=== PATIENT | male | born 1980 | race African-American/Black ===

== ENCOUNTER → 2016-09-09 | Outpatient (CLI) | payer BC | LOC: RAD 17:23 | PROVIDERS: ATTEND Nurse Practitioner Acute Care | DX: R59.0 Localized enlarged lymph nodes (principal) | CPT/HCPCS: 70360 ==

== ENCOUNTER 2019-09-23 17:03 | Emergency (ER) | payer BC ==
[2019-09-23] MEDS ORDERED: ASPIRIN 81 MG TABLET, CHEWABLE PO ONE (18:31)
--- NOTE | 2019-09-23 18:31 | ER Document Report ---
ED Medical Screen (RME) - General Chief Complaint: Chest Pain Stated Complaint: CHEST PAIN Time Seen by Provider: 09/23/19 18:17 Mode of Arrival: Ambulatory Information source: Patient TRAVEL OUTSIDE OF THE [place] IN LAST 30 DAYS: No - HPI Notes: 09/23/19 18:31 39-year-old male with a history of asthma presents to the emergency room by private car today for complaints of left-sided chest pain that started around 1130 this morning, has been intermittent. Patient states he went to the local EMS, they checked his blood pressure and said it was kind of high, advised to follow-up with his doctor or go to the emergency room. Patient states that the chest pain goes away for a bit and then comes back. Typically he states the chest pains been to his left axillary area, in the waiting room he said that the chest pain comes and goes. Smoker. No history of hypertension. Denies any TN or CVA or cardiac disease on his mother father side. Does not take any oral medications. No fever or chills. No shortness of breath I have greeted and performed a rapid initial assessment of this patient. A comprehensive ED assessment and evaluation of the patient, analysis of test results and completion of the medical decision making process will be conducted by additional ED providers. PHYSICAL EXAMINATION: GENERAL: Well-appearing, well-nourished and in no acute distress. CV: s1, s2 regular LUNGS: No respiratory distress NEUROLOGICAL: Normal speech, normal gait. SKIN: Warm, Dry, normal turgor, no rashes or lesions noted. - Related Data Allergies/Adverse Reactions: iodine [Iodine] Allergy (Unknown, Verified 09/23/19 18:28) Past Medical History - Social History Family history: None Pulmonary Medical History: Reports: Hx Asthma Psychiatric Medical History: Denies: Hx Depression - Immunizations Immunizations up to date: Yes Hx Diphtheria, Pertussis, Tetanus Vaccination: Yes - tetanus here Physical Exam - Vital signs Vitals: Temp Pulse Resp BP Pulse Ox 98.4 F 65 18 147/82 H 99 09/23/19 17:23 09/23/19 17:23 09/23/19 17:23 09/23/19 17:23 09/23/19 17:23 Course - Vital Signs Vital signs: Temp Pulse Resp BP Pulse Ox 98.4 F 65 18 147/82 H 99 09/23/19 17:23 09/23/19 17:23 09/23/19 17:23 09/23/19 17:23 09/23/19 17:23
--- NOTE | 2019-09-23 19:02 | EKG REPORT ---
SEVERITY:- ABNORMAL ECG - SINUS RHYTHM LEFT ATRIAL ABNORMALITY BORDERLINE T ABNORMALITIES, DIFFUSE LEADS : Confirmed by: Eric Gupta MD 23-Sep-2019 19:01:12
[2019-09-23 19:21] LABS: ABSOLUTE EOSINOPHILS # (AUTO) 0.2 10^3/uL (0.0-0.6); ABSOLUTE LYMPHOCYTES (AUTO) 2.7 10^3/uL (0.5-4.7); ABSOLUTE MONOCYTES (AUTO) 0.5 10^3/uL (0.1-1.4); ABSOLUTE NEUT (AUTO) 2.5 10^3/uL (1.7-8.2); BASOPHILS % (AUTO) 0.6 % (0-2); EOSINOPHILS % (AUTO) 3.1 % (0-6); HEMOGLOBIN 14.2 g/dL (13.5-17.0); LYMPHOCYTES % (AUTO) 45.4 % (13-45); MEAN CORPUSCULAR HEMOGLOBIN 30.4 pg (27.0-33.4); MEAN CORPUSCULAR HGB CONC 33.7 g/dL (32.0-36.0); MEAN CORPUSCULAR VOLUME 90 fl (80-97); MONOCYTES % (AUTO) 8.3 % (3-13); PLATELET COUNT 271 10^3/uL (150-450); RED BLOOD COUNT 4.66 10^6/uL (4.35-5.55); SEGMENTED NEUTROPHILS % (AUTO) 42.6 % (42-78); TOTAL CELLS COUNTED % (AUTO) 100 %; WHITE BLOOD COUNT 5.9 10^3/uL (4.0-10.5)
--- NOTE | 2019-09-23 19:27 | RADIOLOGY REPORT (SQ) ---
EXAM DESCRIPTION: CHEST SINGLE VIEW IMAGES COMPLETED DATE/TIME: 09/23/2019 7:12 pm REASON FOR STUDY: chest pain COMPARISON: 08/07/2015 EXAM PARAMETERS: NUMBER OF VIEWS: One view. TECHNIQUE: Single frontal radiographic view of the chest acquired. RADIATION DOSE: NA LIMITATIONS: None. FINDINGS: LUNGS AND PLEURA: No opacities, masses or pneumothorax. No pleural effusion. MEDIASTINUM AND HILAR STRUCTURES: No masses. Contour normal. HEART AND VASCULAR STRUCTURES: Heart normal in size. Normal vasculature. BONES: No acute findings. HARDWARE: None in the chest. OTHER: No other significant finding. IMPRESSION: NO ACUTE RADIOGRAPHIC FINDING IN THE CHEST. TECHNICAL DOCUMENTATION: JOB ID: [id number] 2010 [employer]- All Rights Reserved Reading location - IP/workstation name: [email or web address]
[2019-09-23 19:35] LABS: ALBUMIN 4.8 g/dL (3.5-5.0); ALKALINE PHOSPHATASE 74 U/L (38-126); ANION GAP 7 (5-19); ASPARTATE AMINO TRANSFERASE 62 U/L (17-59); BLOOD UREA NITROGEN 11 mg/dL (7-20); CALCIUM 9.8 mg/dL (8.4-10.2); CARBON DIOXIDE 31 mmol/L (22-30); CHLORIDE 101 mmol/L (98-107); CREATINE KINASE 241 U/L (55-170); GLUCOSE 96 mg/dL (75-110); POTASSIUM 4.3 mmol/L (3.6-5.0); TOTAL PROTEIN 8.1 g/dL (6.3-8.2)
[2019-09-23 19:47] LABS: CREATINE KINASE MB 0.98 ng/mL (<4.55)
[2019-09-23 19:48] LABS: TROPONIN I < 0.012 ng/mL
--- NOTE | 2019-09-24 06:19 | ER Document Report ---
ED Cardiac - General Chief Complaint: Chest Pain Stated Complaint: CHEST PAIN Time Seen by Provider: 09/23/19 18:17 Primary Care Provider: CATA AGUIRRE MD [ACTIVE STAFF] - Follow up as needed VIVIANA FIGUEROA MD [ACTIVE PROVISIONAL STAFF] - Follow up as needed Mode of Arrival: Ambulatory Information source: Patient Notes: Otherwise healthy 39-year-old male presented to the emergency department chief complaint of chest pain. Patient reports chest pain started to the left side of his chest today while he was at work. He states he was not doing anything strenuous. He states it felt like a burning sensation. He reports the pain has been intermittent and denies any alleviating or exacerbating factors. Denies any radiation, nausea, vomiting, shortness of breath. He is a non-smoker, drinks occasionally and does not use any drugs. He has a history of asthma. TRAVEL OUTSIDE OF THE [place] IN LAST 30 DAYS: No - Related Data Allergies/Adverse Reactions: iodine [Iodine] Allergy (Unknown, Verified 09/23/19 18:28) Past Medical History - General Information source: Patient - Social History Smoking Status: Never Smoker Chew tobacco use (# tins/day): No Frequency of alcohol use: Social Drug Abuse: None Family History: Reviewed & Not Pertinent Patient has homicidal ideation: No Pulmonary Medical History: Reports: Hx Asthma Psychiatric Medical History: Denies: Hx Depression - Immunizations Immunizations up to date: Yes Hx Diphtheria, Pertussis, Tetanus Vaccination: Yes - tetanus here Review of Systems - Review of Systems Cardiovascular: Chest pain -: Yes All other systems reviewed and negative Physical Exam - Vital signs Vitals: Temp Pulse Resp BP Pulse Ox 98.4 F 65 18 147/82 H 99 09/23/19 17:23 09/23/19 17:23 09/23/19 17:23 09/23/19 17:23 09/23/19 17:23 - Notes Notes: PHYSICAL EXAMINATION: GENERAL: Well-appearing, well-nourished and in no acute distress. HEAD: Atraumatic, normocephalic. EYES: Pupils equal round and reactive to light, extraocular movements intact, sclera anicteric, conjunctiva are normal. ENT: Nares patent, oropharynx clear without exudates. Moist mucous membranes. NECK: Normal range of motion, supple without lymphadenopathy LUNGS: Breath sounds clear to auscultation bilaterally and equal. No wheezes rales or rhonchi. HEART: Regular rate and rhythm without murmurs ABDOMEN: Soft, nontender, nondistended abdomen. No guarding, no rebound. No masses appreciated. Musculoskeletal: Normal range of motion, no pitting or edema. No cyanosis. NEUROLOGICAL: Cranial nerves grossly intact. Normal speech, normal gait. Normal sensory, motor exams PSYCH: Normal mood, normal affect. SKIN: Warm, Dry, normal turgor, no rashes or lesions noted. Course - Re-evaluation Re-evalutation: Presentation of chest pain in an otherwise well appearing patient. Low clinical suspicion for ACS given clinical history, exam, EKG without ST elevations or depressions, and negative initial troponin. HEART score less than or equal to 3. PE also seems unlikely given clinical history, absence of tachycardia or dyspnea. Patient is PERC criteria negative. CXR without evidence of pneumothorax or pneumonia. No widened mediastinum. Aortic dissection also seems unlikely given history, symmetric pulses, CXR, and vitals. HEART Score: History 0 ECG 0 Age 0 Risk Factors 0 Troponin 0 Total: 0 Chest pain in a patient without evidence of cardiac or other serious etiology on workup today. I discussed with patient that, based on their age, risk factors and emergency department testing today, the likelihood that their symptoms are related to a heart attack is very low (estimated risk of heart attack or over the next 30 days of less than 1%). The patient demonstrates decision making capacity and has verbalized an understanding of these risks to me. Based on this, the patient has chosen to follow-up as an outpatient. Usual chest pain return precautions reviewed. The patient states understanding and agreement with this plan. - Vital Signs Vital signs: Temp Pulse Resp BP Pulse Ox 98.4 F 65 16 129/90 H 100 09/23/19 18:22 09/23/19 17:23 09/24/19 06:54 09/24/19 06:54 09/24/19 06:54 - Laboratory Result Diagrams: 09/23/19 18:49 09/23/19 18:49 Laboratory results interpreted by me: 09/23/19 09/23/19 18:49 18:49 Lymph % (Auto) 45.4 H Carbon Dioxide 31 H AST 62 H ALT 135 H Creatine Kinase 241 H Discharge - Discharge Clinical Impression: Chest pain Qualifiers: Chest pain type: unspecified Qualified Code(s): R07.9 - Chest pain, unspecified Condition: Stable Disposition: HOME, SELF-CARE Instructions: Chest Pain of Unclear Cause ([facility]) Additional Instructions: As discussed please try Tylenol or ibuprofen today to see if that will help with the pain. If you develop worsening chest pain accompanied by shortness of breath, nausea, radiation of the pain into your neck, jaw, arms or you get clammy/sweaty please return to the emergency department. If you consider seeing a wax coating machine tender the phone numbers are below Forms: Return to Work Referrals: CATA AGUIRRE MD [ACTIVE STAFF] - Follow up as needed VIVIANA FIGUEROA MD [ACTIVE PROVISIONAL STAFF] - Follow up as needed
[2019-09-24 06:56] VITALS: BP 129/90
== END 2019-09-24 07:03 | disposition home or self-care (01) ==
LOC: ER 17:03
DX: R07.9 Chest pain, unspecified (principal)
CPT/HCPCS: 36415; 71045; 80053; 82550; 82553; 84484; 85025; 93005; 93010; 99285